=== PATIENT | female | born 1985 | race Caucasian/White ===

== ENCOUNTER 2023-07-14 07:39 | Outpatient (OUT) | payer OTHER, SELFPAY ==
--- NOTE | 2023-07-14 08:42 | PM.PRESUREVA ---
History of Present Illness History of Present Illness Chief complaint: Urethral Stricture, Frequent UTI's Narrative: Patient presents for preadmission testing. The patient reports a long history of recurrent urinary tract infections and at least two previous urethral dilations. She states she does have dysuria, but denies hematuria, abdominal pain, fever, or any other complaints. Review of Systems ROS Narrative REVIEW OF SYSTEMS: Negative except as stated in HPI, ten or more systems reviewed. Constitutional: No fever , chills, weakness ENT: No sore throat or epistaxis Cardiovascular: No edema, chest pain, palpitations, or activity intolerance Respiratory: No shortness of breath, cough, or wheezing Musculoskeletal: No joint pain or swelling Gastrointestinal: No abdominal pain, constipation, diarrhea, or vomiting Neurological: No numbness, tingling, weakness, or headache Psychiatric: No mood changes [facility] Medical History (Updated 07/14/23 @ 08:54 by Swapna Valdez NP) Anxiety ?F41.9 - Anxiety disorder, unspecified (ICD-10) Colitis ?K52.9 - Noninfective gastroenteritis and colitis, unspecified (ICD-10) COVID-19 ?U07.1 - COVID-19 (ICD-10) Crohn disease ?K50.90 - Crohn's disease, unspecified, without complications (ICD-10) GERD (gastroesophageal reflux disease) ?K21.9 - Gastro-esophageal reflux disease without esophagitis (ICD-10) Hypertension ?I10 - Essential (primary) hypertension (ICD-10) Hypoglycemia ?E16.2 - Hypoglycemia, unspecified (ICD-10) IBS (irritable bowel syndrome) ?K58.9 - Irritable bowel syndrome without diarrhea (ICD-10) Kidney stones ?N20.0 - Calculus of kidney (ICD-10) Other urethral stricture, female ?N35.82 - Other urethral stricture, female (ICD-10) Recurrent UTI ?N39.0 - Urinary tract infection, site not specified (ICD-10) Surgical History (Updated 07/14/23 @ 08:31 by Swapna Valdez NP) History of cholecystectomy ?Z90.49 - Acquired absence of other specified parts of digestive tract (ICD-10) History of colonoscopy ?Z98.890 - Other specified postprocedural states (ICD-10) S/P cystoscopy ?Z98.890 - Other specified postprocedural states (ICD-10) Status post cystourethroscopy with dilation of urethral stricture ?Z98.890 - Other specified postprocedural states (ICD-10) Family History (Updated 07/14/23 @ 08:31 by Swapna Valdez NP) Other Family history of breast cancer Family history of coronary artery disease Family history of diabetes mellitus Family history of heart disease Family history of hypertension Family history of myocardial infarction Social History (Updated 07/14/23 @ 08:25 by Swapna Valdez NP) Within the past year, how often did you have a drink containing alcohol: never Score interpretation: A score less than 3 is consistent with normal alcohol consumption. 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 Highest level of school completed/degree received: high school graduate Meds Home Medications and Allergies Home Medications Medication Instructions Recorded Confirmed Type IBD assist supplement 07/14/23 History Lactobacillus 40-Bifidobact cap PO 07/14/23 History 3-S.thermophilus 100 billion cell capsule (Probiotic) Uqora supplement 07/14/23 History ascorbic acid (vitamin C) 1,000 mg 1 g PO DAILY 07/14/23 07/14/23 History capsule cetirizine 10 mg tablet (Zyrtec) 10 mg PO DAILY 07/14/23 07/14/23 History doxepin 10 mg capsule 10 mg PO DAILY 07/14/23 07/14/23 History norethindrone 1 mg-ethinyl 1 tab PO DAILY 07/14/23 07/14/23 History estradiol 35 mcg tablet (Alyacen) omega 5-bzz-bty-fish oil 1,000 mg 1 cap PO DAILY 07/14/23 07/14/23 History (120 mg-180 mg) capsule (Fish Oil) upadacitinib 45 mg tablet,extended 45 mg PO DAILY 07/14/23 07/14/23 History release 24 hr (Rinvoq) Allergies Allergy/AdvReac Type Severity Reaction Status Date / Time acetaminophen [From Vicodin] Allergy itching Verified 07/14/23 08:20 hydrocodone [From Vicodin] Allergy itching Verified 07/14/23 08:20 oxycodone [From Percocet] Allergy itching Verified 07/14/23 08:20 Exam Narrative Exam Narrative: Constitutional: Awake, alert, comfortable, well-appearing, nontoxic, interactive, vital signs as charted Head: Normocephalic, atraumatic Neck: Supple, normal appearance, normal range of motion, no meningeal signs, no lymphadenopathy Respiratory: No respiratory distress, breath sounds clear Cardiovascular: Regular rate and rhythm, strong and regular heart tones Abdomen: Nontender, normal bowel sounds, soft, no CVA tenderness Musculoskeletal: Normal gait, no swelling or edema Skin: No rashes or induration, no lesions, only visible skin inspected Neuro: No neurological deficits, normal sensation Psychiatric: Oriented ?3, normal affect Assessment and Plan Assessment and Plan (1) Other urethral stricture, female: Plan Cystoscopy and urethral dilation scheduled with Dr. Aguero 07/22/2023.
[2023-07-14 08:49] LABS: Basophils Percent Auto 0.6 % (0.2-2.0); Eosinophils Percent Auto 0.6 % (0.9-7.0); Hematocrit 36.8 % (36.0-48.0); Hemoglobin 12.1 g/dL (12.0-16.0); Immature Granulocytes Abs Auto 0.01 10^3/uL (0.00-0.03); Immature Granulocytes Pct Auto 0.2 % (0.0-0.5); Lymphocytes Percent Auto 40.3 % (20.5-60.0); Mean Corpuscular HGB Conc 32.9 g/dL (29.9-35.2); Mean Corpuscular Hemoglobin 30.9 pg (26.7-34.0); Mean Corpuscular Volume 94.1 fL (81.0-99.0); Mean Platelet Volume 10.1 fL (9.5-13.5); Monocytes Absolute Auto 0.3 10^3/uL (0.3-0.8); Neutrophils Absolute Auto 2.7 10^3/uL (1.4-6.5); Neutrophils Percent Auto 53.3 % (43.0-75.0); Platelet Count 305 10^3/uL (150-450); Red Blood Count 3.91 10^6/uL (4.20-5.40); Red Cell Distribution Width 13.6 % (11.0-15.0)
[2023-07-14 09:42] LABS: Anion Gap 11.2; BUN Creatinine Ratio 16.7; Calcium 8.9 mg/dL (8.5-10.1); Carbon Dioxide 26.8 mmol/L (21.0-32.0); Chloride 104 mmol/L (98-107); Estimated GFR (African America >60 (>=60); Estimated GFR (Non-African Ame >60 (>=60); Glucose 93 mg/dL (74-106); Sodium 138 mmol/L (136-145)
== END 2023-07-14 07:40 | disposition home or self-care (01) ==
LOC: PST 07:39
PROVIDERS: PCP Family Medicine; Visit Provider Urology
DX: Z01.812 Encounter for preprocedural laboratory examination (principal); N35.92 Unspecified urethral stricture, female; Z87.440 Personal history of urinary (tract) infections
CPT/HCPCS: 36415; 80048; 85025; G0463

== ENCOUNTER 2023-07-22 06:51 | Day surgery (SDC) | payer OTHER, SELFPAY ==
[2023-07-14 08:39] VITALS: BP 118/66; PULSE 78; RESP 18; TEMP 36.2; O2SAT 98; BMI 32.2
[2023-07-22] VITALS (8 sets, daily range): BP systolic 123–153; BP diastolic 76–99; PULSE 69–91; RESP 16–24; TEMP 36.1–36.3; O2SAT 97–100; BMI 33.2
[2023-07-22] MEDS: LACTATED RINGER'S SOLUTION 1,000 ML 50 ML IV (07:17)
[2023-07-22 07:21] LABS: HCG Qualitative NEGATIVE (NEGATIVE)
[2023-07-22] MEDS: CEFAZOLIN SODIUM/DEXTROSE,ISO 2 GM/50 ML PIGGYBACK IV (08:09)
--- NOTE | 2023-07-22 08:41 | PM.URSON ---
Urology Surgery Operative Note Operative Note Procedure Date: 07/22/23 Time Out Performed: yes Pre-op Diagnosis: urethral stenosis and recurrent urinary tract infection Post-op Diagnosis: same as pre-op Procedures performed: #1. Urethral dilation with [place]dermott sounds to 32 [place]. #2. Cystoscopy. Anesthesia: General-LMA Primary Surgeon: Marv Aguero Complications: none Estimated blood loss (mL): 5 Findings: significant urethral stenosis Specimens: . None Indications for Procedures: this lady has progressive urinary frequency and some recurrent urinary tract infection. She has had urethral dilations done in the past. She now presents for cystoscopy and urethral dilation. She has signed an informed consent after risks were explained. Detailed description of Procedure: The patient was brought to the operating room and placed on the operating room table in the supine position. SCDs were placed on the lower extremities and turned on and functioning during the entire case. Timeout was done by all parties in the room. We all agreed upon the patient's identification and the planned procedures for this patient. Genn. anesthesia was then administered. The patient was then repositioned into the modified dorsal lithotomy position. All pressure points were satisfactorily padded. Genitalia were sterilely prepped and draped in usual fashion.I started by using Aminata sounds and dilating her urethra from 20 [place] up to 32 [place]. Her urethra was a bit friable and it did bleed from the dilation.there was no evidence of atrophic vaginitis. I then passed a 22 [place] Olympus cystoscope per urethra and into the bladder. Careful panendoscopy revealed no evidence of any tumors, stones or mucosal lesions. Clear urine was seen effluxing from both orifices. The urethra revealed distal meatal bleeding. The scope was then removed after the bladder was drained of its contents. I then held pressure with a 4 x 4 on the urethra for 5 minutes. The bleeding did subside. She was then transferred to a [facility] bed and wheeled to PACU in stable condition. The plan would be to repeat a urethral dilation in one year.
--- NOTE | 2023-07-22 09:32 | PC.NURSE ---
pATIENT URINATE BLOOD TINGED URINE AT THIS TIME.
== END 2023-07-22 09:50 | disposition home or self-care (01) ==
PROVIDERS: Urology; PCP Family Medicine; Visit Provider Anesthesiology
PROC: (CPT 910; principal; 2023-07-22 08:00)
DX: N35.92 Unspecified urethral stricture, female (principal); M19.90 Unspecified osteoarthritis, unspecified site; Z87.440 Personal history of urinary (tract) infections; J30.2 Other seasonal allergic rhinitis; K21.9 Gastro-esophageal reflux disease without esophagitis; Z87.442 Personal history of urinary calculi; Z87.891 Personal history of nicotine dependence; R35.1 Nocturia
CPT/HCPCS: 52281; 36415; 84703; J2704

== ENCOUNTER 2024-09-21 13:20 | Outpatient (OUT) | payer OTHER, SELFPAY | END 2024-09-21 13:21 | disposition home or self-care (01) | LOC: PST 13:20 | PROVIDERS: PCP Family Medicine; Visit Provider Urology | DX: Z01.818 Encounter for other preprocedural examination (principal); N39.0 Urinary tract infection, site not specified ==

== ENCOUNTER 2024-09-28 09:10 | Day surgery (SDC) | payer OTHER, SELFPAY ==
[2024-09-28 09:20] VITALS: BP 135/85; PULSE 79; TEMP 36; O2SAT 99; BMI 32.8
[2024-09-28 09:33] LABS: HCG Qualitative NEGATIVE (NEGATIVE); Internal Control Within Normal Limits
[2024-09-28] MEDS: LACTATED RINGER'S SOLUTION 1,000 ML 50 ML IV (09:39)
[2024-09-28] MEDS: CEFAZOLIN SODIUM 2 GM/50 ML D5W PREMIX IV (11:28)
--- NOTE | 2024-09-28 12:00 | PM.URSON ---
Urology Surgery Operative Note Operative Note Procedure Date: 09/28/24 Time Out Performed: yes Pre-op Diagnosis: Urethral stenosis and recurrent UTIs Post-op Diagnosis: same as pre-op Procedures performed: 1. Urethral dilation with [place] sounds to 32 [place] #2. Cystoscopy. Anesthesia: MAC Primary Surgeon: Marv Aguero Complications: None Estimated blood loss (mL): 0 Findings: Urethral stenosis Specimens: None Drains: None Indications for Procedures: This lady has a history of urethral stenosis and recurrent urinary infections. She has had urethral dilations and cystoscopy over the last several years. She has done well with this management. Her symptoms have recently worsened. She now presents for urethral dilation and cystoscopy. She has signed an informed consent after risks were explained. Detailed description of Procedure: The patient was brought to the operating room and placed on the operating room table in the supine position. SCDs were placed on the lower extremities and turned on and functioning during the entire case. Timeout was done by all parties in the room. We all agreed upon the patient's identification and the planned procedures for this patient. mac anesthesia was then administered. The patient was then repositioned into the modified dorsal lithotomy position. All pressure points were satisfactorily padded. Genitalia were sterilely prepped and draped in usual fashion. Upon visual inspection she had urethral stenosis. I then used [place] sounds and dilated her from 20 [place] up to 32 [place]. I then passed a 22 [place] Olympus cystoscope per urethra and into the bladder. Careful panendoscopy in the bladder revealed no evidence of any tumors, stones or lesions. Clear urine was seen the effluxing from both ureteral orifices. The urethra was not bleeding. The bladder was drained of its contents and the scope was then removed. She was then transferred to [facility] and wheeled to PACU in stable condition.
[2024-09-28 12:01] VITALS: BP 142/102; PULSE 87; O2SAT 99
[2024-09-28 12:16] VITALS: BP 137/90; PULSE 76; O2SAT 98
[2024-09-28 12:46] VITALS: BP 151/102; PULSE 72; O2SAT 100
--- NOTE | 2024-09-28 12:56 | PC.NURSE ---
Up to bathroom and voids pink tinged urine without difficulty
== END 2024-09-28 13:03 | disposition home or self-care (01) ==
PROVIDERS: Anesthesiology; PCP Family Medicine; Visit Provider Urology
PROC: (CPT 910; principal; 2024-09-28 10:30)
DX: N35.92 Unspecified urethral stricture, female (principal); Z87.440 Personal history of urinary (tract) infections; Z87.891 Personal history of nicotine dependence; F32.A Depression, unspecified; Z90.49 Acquired absence of other specified parts of digestive tract; K21.9 Gastro-esophageal reflux disease without esophagitis
CPT/HCPCS: 52281; 36415; 84703; J0690; J1100; J1885; J2250; J2405; J2704; J3010